=== PATIENT | female | born 1945 | race Caucasian/White ===

== ENCOUNTER → 2016-08-18 | Outpatient (CLI) | payer MEDICARE ==
--- NOTE | 2016-08-18 10:54 | MRI ---
EXAM DESCRIPTION: MRI of the cervical spine CLINICAL HISTORY: NECK PAIN COMPARISON: None. TECHNIQUE: Multiplanar MRI of the cervical spine was performed without contrast. GENERAL Cervical vertebral body alignment is unremarkable.Vertebral body heights are maintained. The craniocervical and atlantoaxial junctions are unremarkable. No aggressive osseous lesion. C2-3 Left facet degeneration noted with marrow edema and reactive soft tissue edema. No neural foraminal or spinal canal narrowing. C3-4 There is severe left neural foraminal narrowing and moderate right neural foraminal narrowing from facet and uncovertebral joint hypertrophy. A 2 mm broad-based posterior disc protrusion. No spinal canal narrowing. C4-5 Moderate bilateral neural foraminal narrowing from facet and uncovertebral joint hypertrophy. The midline diameter of the spinal canal is adequate at 11 mm. C5-6 Asymmetric to the left broad-based posterior disc osteophyte complex. Minimal cord flattening without myelomalacia noted. The midline diameter of the spinal canal is adequate at 1 cm. Moderate bilateral neural foraminal narrowing from facet and uncovertebral joint hypertrophy. C6-7 Broad-based posterior disc osteophyte complex with cord contact. The midline diameter of the spinal canal is adequate at 1 cm. Bilateral neural foramen and are likely adequate. C7-T1 No significant findings. CORD AND INTRASPINAL No cervical cord or intraspinal lesions. IMPRESSION: There is multilevel degenerative change as described above with cord contact noted at C5-C6 and C6-C7, but borderline normal spinal canal at both levels. No evidence of myelomalacia and Multilevel neural foraminal narrowing as described above there there is extensive marrow edema in reactive soft tissue edema noted surrounding the left C2-C3 facet could cause significant localized pain. Electronically signed by: Young Roca MD 08/18/2016 10:52
== END ==
LOC: MRI 08:51
PROVIDERS: ATTEND Family Medicine
DX: M54.2 Cervicalgia (principal); M53.82 Other specified dorsopathies, cervical region

== ENCOUNTER → 2016-08-25 | Outpatient (CLI) | payer MEDICARE | LOC: GMAL 12:33 | PROVIDERS: ATTEND Family Medicine | DX: D51.3 Other dietary vitamin B12 deficiency anemia (principal); E55.9 Vitamin D deficiency, unspecified ==

== ENCOUNTER → 2016-09-01 | Outpatient (CLI) | payer MEDICARE | LOC: GMAL 11:57 | PROVIDERS: ATTEND Family Medicine | DX: R53.82 Chronic fatigue, unspecified (principal) ==

== ENCOUNTER → 2016-12-19 | Outpatient (CLI) | payer MEDICARE ==
--- NOTE | 2016-12-21 10:59 | RAD ---
EXAM DESCRIPTION: Foot,Right 3 Views CLINICAL HISTORY: 71 years, Female, GANGLION CYST COMPARISON: None TECHNIQUE: AP, lateral, and oblique views of the right foot FINDINGS: Mild degenerative changes are present without destructive process or definite erosive changes. No fracture or dislocation is noted and no radiopaque foreign body evident. IMPRESSION: Essentially negative right foot with mild degenerative changes. Electronically signed by: Saleem Patel MD 12/21/2016 10:58 AM CDT
== END | disposition home or self-care (01) ==
LOC: RAD 08:01
PROVIDERS: ATTEND Orthopaedic Surgery
DX: M67.40 Ganglion, unspecified site (principal)

== ENCOUNTER 2016-12-23 05:46 | Day surgery (SDC) | payer MEDICARE ==
[2016-12-23] MEDS ORDERED: LACTATED RINGERS 1,000 ML ONE (06:10)
[2016-12-23] MEDS ORDERED: SODIUM CHL 0.9% 100ML MINI-BAG 100 ML IVPB ONE (06:10)
[2016-12-23] MEDS ORDERED: ceFAZolin SODIUM 1 GM VIAL ONE ×2 (06:11→10:50)
[2016-12-23] MEDS ORDERED: VANCOMYCIN HCL INJ 1,000 MG VIAL IVPB ONE (10:50)
[2016-12-23] MEDS ORDERED: LIDOCAINE 1% 50 ML VIAL INJ ONE (10:50)
[2016-12-23] MEDS ORDERED: PROPOFOL 200 MG/20 ML VIAL IV ONE (12:00)
[2016-12-23 12:15] VITALS: TEMP 97.7
[2016-12-23 13:45] VITALS: BP 153/79; O2SAT 99
--- NOTE | 2016-12-24 08:54 | OP ---
DATE OF PROCEDURE: 12/23/16 PREOPERATIVE DIAGNOSIS: 1. Ganglion cyst of the toe at the proximal interphalangeal joint. POSTOPERATIVE DIAGNOSIS: 1. Ganglion cyst of the toe at the proximal interphalangeal joint. PROCEDURE: 1. Excision of cyst. SURGEON: Terrell Kraft MD. ASSISTING: Tobin Christine CST, BRUNO. ANESTHESIA: General. COMPLICATIONS: None. FINDINGS: About 4 to 5 mm cyst arising from the proximal interphalangeal joint. INDICATION: Ms. Hua has a history of cystic like mass on the digit. She had no trauma related to this. It has fluctuated occasionally in size, but causes irritation dorsally. Secondary to that, she requested operative intervention. After discussing the risks, benefits and alternatives to that, she gave informed consent for that. PROCEDURE: The patient was brought to the Operating Room and placed in the supine position. General anesthesia was induced and the lower leg was prepped and draped. Following prepping and draping, a transverse incision was made directly overlying the cyst. Blunt dissection was used to isolate the cyst. The dissection was carried down all the way to the IP joint and it was noted to arise from there. The cyst was excised and the stalk was cauterized. The wound was irrigated and sterile dressings were placed. The patient was awoken from anesthesia and taken to Recovery. POSTOPERATIVE INSTRUCTIONS: She will be weight-bearing as tolerated and followup with us in approximately two days. #[id number] [facility]
== END 2016-12-23 12:30 | disposition home or self-care (01) ==
LOC: AMB 05:46
PROVIDERS: ATTEND Orthopaedic Surgery
DX: M67.471 Ganglion, right ankle and foot (principal); E03.9 Hypothyroidism, unspecified; I48.91 Unspecified atrial fibrillation; K21.9 Gastro-esophageal reflux disease without esophagitis; I10 Essential (primary) hypertension; M15.0 Primary generalized (osteo)arthritis; E78.4 Other hyperlipidemia; I70.1 Atherosclerosis of renal artery; M35.00 Sjogren syndrome, unspecified; I47.1 Supraventricular tachycardia; Z88.2 Allergy status to sulfonamides; Z88.7 Allergy status to serum and vaccine; Z79.82 Long term (current) use of aspirin; Z79.899 Other long term (current) drug therapy
CPT/HCPCS: 01470; 28092; 87070; 88304; J0690; J3370; J3490; J7050; J7120

== ENCOUNTER → 2017-02-24 | Outpatient (CLI) | payer MEDICARE | LOC: GMAL 10:22 | PROVIDERS: ATTEND Family Medicine | DX: D51.3 Other dietary vitamin B12 deficiency anemia (principal); E03.9 Hypothyroidism, unspecified; E55.9 Vitamin D deficiency, unspecified; E78.4 Other hyperlipidemia ==

== ENCOUNTER → 2017-04-08 | Outpatient (CLI) | payer MEDICARE | END | disposition home or self-care (01) | LOC: GMAL 17:29 | PROVIDERS: ATTEND Family Medicine | DX: R41.82 Altered mental status, unspecified (principal) ==

== ENCOUNTER → 2017-04-15 | Outpatient (CLI) | payer MEDICARE ==
--- NOTE | 2017-04-15 13:34 | MRI ---
EXAM DESCRIPTION: Brain w/wo Contrast CLINICAL HISTORY: 71 years Female, MEM LOSS, ALTERED MENTAL STATUS left sided headache with blurred vision. COMPARISON: None. TECHNIQUE: MRI of the brain is performed according to our usual protocol including multiplanar multi sequence technique. Post gadolinium imaging is performed following IV administration. FINDINGS: Noncontrast imaging demonstrates an intact corpus callosum and normal-appearing sella and pituitary region as well as brainstem. Normal-size ventricular system for the patient's age is present without mass effect or midline shift. Periventricular coalescent and scattered subcortical white matter changes of aging and small vessel disease is evident. Possibility of vasculitis or a demyelinating process cannot be completely excluded. Coronal gradient echo imaging demonstrates no evidence of susceptibility artifact to suggest prior hemorrhage. Postcontrast the normal meningeal and vascular structures enhance. Tumor mass or metastatic disease is not apparent. A large vascular malformation is not apparent. IMPRESSION: 1. Age-appropriate atrophic changes with mild ventriculomegaly without mass effect. 2. Extensive bilateral periventricular and subcortical white matter signal changes of aging and small vessel disease that is more extensive than typically seen and suggestive of superimposed possibility of an element of vasculitis or demyelinating process. Definite involvement of the corpus callosum is not apparent to strongly suggest demyelinating process. 3. No enhancing tumor mass or metastatic disease or large vascular malformation is seen. Electronically signed by: Saleem Patel MD 04/15/2017 1:33 PM CDT
== END ==
LOC: MRI 09:34
PROVIDERS: ATTEND Family Medicine
DX: R41.82 Altered mental status, unspecified (principal)

== ENCOUNTER → 2017-06-04 | Outpatient (CLI) | payer MEDICARE | END | disposition home or self-care (01) | LOC: GMAL 14:37 | PROVIDERS: ATTEND Family Medicine | DX: D51.3 Other dietary vitamin B12 deficiency anemia (principal); M79.1 Myalgia ==

== ENCOUNTER → 2017-11-04 | Outpatient (CLI) | payer MEDICARE | LOC: GMAL 10:45 | PROVIDERS: ATTEND Family Medicine | DX: E34.9 Endocrine disorder, unspecified (principal) ==

== ENCOUNTER → 2017-11-12 | Outpatient (CLI) | payer MEDICARE | END | disposition home or self-care (01) | LOC: GMAL 14:31 | PROVIDERS: ATTEND Family Medicine | DX: R53.82 Chronic fatigue, unspecified (principal) ==

== ENCOUNTER → 2017-11-23 | Outpatient (CLI) | payer MEDICARE | LOC: LAB.O 08:30 | PROVIDERS: ATTEND Family Medicine | DX: E06.3 Autoimmune thyroiditis (principal); E05.00 Thyrotoxicosis with diffuse goiter without thyrotoxic crisis or storm; M32.10 Systemic lupus erythematosus, organ or system involvement unspecified ==

== ENCOUNTER → 2017-12-10 | Outpatient (CLI) | payer MEDICARE ==
--- NOTE | 2017-12-14 14:39 | MAM ---
EXAM DESCRIPTION: 3D Screening BILATERAL : Digital Mammography. CLINICAL HISTORY: 72 years Female SCREENING . No complaints. Remote family history of breast cancer. Postmenopausal. Currently on HRT. COMPARISON: Baseline study at this facility. No prior reports available. TECHNIQUE: Bilateral CC and MLO projection full-field images, 3-D tomosynthesis digital mammographic technique. Also bilateral synthesized CC/ MLO full-field images. CAD not utilized. FINDINGS: The breast parenchymal density pattern is: Scattered areas of fibroglandular density. No skin thickening or nipple retraction left axillary lymph node. Bilateral solitary microcalcifications.. Focal asymmetry in the 900 clock position of the right breast, anterior third, approximately 3 cm from the nipple. Not associated with microcalcifications. No focal, stellate mass or density, focal asymmetry , and no suspicious microcalcifications left breast. IMPRESSION: BI-RADS CATEGORY: 0 - INCOMPLETE- Need additional imaging evaluation. FOLLOW-UP: Recall for additional imaging: Bilateral 3-D tomosynthesis diagnostic full field LM images and 2-D digital CC spot compression of the anterior right breast. Follow-up targeted right breast ultrasound if indicated by diagnostic images.. Written communication concerning the IMPRESSION and Follow-up, will be mailed to the patient and referring health care provider. Electronically signed by: Tobin Rose MD 12/14/2017 2:38 PM CDT
== END ==
LOC: MAMMO 10:53
PROVIDERS: ATTEND Family Medicine
DX: Z12.31 Encounter for screening mammogram for malignant neoplasm of breast (principal)

== ENCOUNTER → 2017-12-16 | Outpatient (CLI) | payer MEDICARE ==
--- NOTE | 2017-12-17 10:28 | US ---
EXAM DESCRIPTION: Breast,Right: Ultrasound CLINICAL HISTORY: 72 yearsFemaleABNORMAL MAMMO COMPARISON: Digital diagnostic 3-D tomosynthesis bilateral breasts on this visit. Bilateral 3-D tomosynthesis screening study 12/10/2017. TECHNIQUE: Transcutaneous scanning of the right breast utilizing two-dimensional and Doppler modes. Scanning performed by the boiler tender and Dr. Rose. FINDINGS: Scanning at the 800 clock position of the right breast from 3 cm to the nipple. Heterogeneous fibroglandular and fatty echotexture. No distinct solid mass or cyst. No abnormal Doppler vascularity or large calcifications. No parenchymal edema. No overlying skin abnormalities. IMPRESSION: 1. Bi-Rads Category 2: Benign. 2. Please refer to bilateral diagnostic 3-D tomosynthesis mammogram examination and report on this visit. The FINDINGS and the FOLLOW-UP plan were reviewed in person with the patient after the examination. Written communication explaining the IMPRESSION and FOLLOW-UP will be mailed to the patient and referring care provider. Electronically signed by: Tobin Rose MD 12/17/2017 10:27 AM CDT
--- NOTE | 2017-12-17 10:29 | MAM ---
EXAM DESCRIPTION: 3D Diagnostic, Bilateral: Digital Mammography CLINICAL HISTORY: 72 yearsFemaleABNORMAL MAMMOGRAM focal asymmetry lateral anterior right breast.. COMPARISON: 3-D digital screening bilateral study 12/10/2017.. Targeted right breast ultrasound following this examination. Report from prior examination also reviewed. TECHNIQUE: Bilateral LM projection full-field images, 3-D tomosynthesis digital mammographic technique. Also bilateral synthesized LM full-field images. 2-D spot magnification in the CC and MLO projections anterior right breast. CAD on 2-D images. FINDINGS: Right breast parenchymal density pattern is: Scattered areas of fibroglandular density. No skin thickening or nipple retraction focal asymmetry in the anterior lateral right breast seen on the prior study is not as distinct on the LM tomosynthesis. Scattered small microcalcifications. Ultrasound: Scanning at the 800 clock position of the right breast from 3 cm to the nipple. Heterogeneous fibroglandular and fatty echotexture. No distinct solid mass or cyst. No abnormal Doppler vascularity or large calcifications. No parenchymal edema. No overlying skin abnormalities. IMPRESSION: BI-RADS CATEGORY: 2 - BENIGN FINDINGS. FOLLOW UP: Return to routine digital bilateral screening, one year interval from December 2017. The FINDINGS and the FOLLOW-UP plan were reviewed in person with the patient after the examination. Written communication explaining the IMPRESSION and FOLLOW-UP will be mailed to the patient and referring care provider. According to the [employer], yearly mammograms are recommended starting at age 40 and continuing as long as a woman is in good health. Any breast change noted on a breast self-exam should be reported promptly to the patient's healthcare provider. Breast MRI is recommended for women with an approximately 20-25% or greater lifetime risk of breast cancer, including women with a strong family history of breast or ovarian cancer and women who have been treated for Hodgkin's disease. A negative mammographic report should not delay tissue diagnosis in patients with significant clinical history or physical findings. Extremely dense breast tissue limits the sensitivity of digital mammography. Electronically signed by: Tobin Rose MD 12/17/2017 10:27 AM CDT
== END ==
LOC: MAMMO 10:44
PROVIDERS: ATTEND Family Medicine
DX: R92.8 Other abnormal and inconclusive findings on diagnostic imaging of breast (principal)
CPT/HCPCS: 76641; 77066; G0279

== ENCOUNTER → 2018-05-05 | Outpatient (CLI) | payer MEDICARE | LOC: GMAL 10:47 | PROVIDERS: ATTEND Family Medicine | DX: M79.1 Myalgia (principal); E03.9 Hypothyroidism, unspecified; E78.4 Other hyperlipidemia ==

== ENCOUNTER → 2019-03-17 | Outpatient (CLI) | payer MEDICARE | LOC: GMAL 10:48 | PROVIDERS: ATTEND Family Medicine | DX: R23.3 Spontaneous ecchymoses (principal) ==

== ENCOUNTER → 2019-05-09 | Outpatient (CLI) | payer MEDICARE | LOC: GMAL 10:25 | PROVIDERS: ATTEND Family Medicine | DX: D51.3 Other dietary vitamin B12 deficiency anemia (principal); E06.3 Autoimmune thyroiditis; E55.9 Vitamin D deficiency, unspecified; E78.49 Other hyperlipidemia ==

== ENCOUNTER → 2019-07-21 | Outpatient (CLI) | payer MEDICARE | LOC: GMAL 10:37 | PROVIDERS: ATTEND Family Medicine | DX: E06.3 Autoimmune thyroiditis (principal); E55.9 Vitamin D deficiency, unspecified ==

== ENCOUNTER → 2019-08-01 | Outpatient (CLI) | payer MEDICARE ==
--- NOTE | 2019-08-01 10:53 | MRI ---
EXAM DESCRIPTION: Brain w/oContrast CLINICAL HISTORY: MEMORY LOSS COMPARISON: Previous MRI of the brain April 15, 2017 TECHNIQUE: Non contrast MRI of the brain is performed according to our usual protocol including multiplanar multi sequence technique. FINDINGS: Sagittal T1 images show intact corpus callosum. Normal pituitary gland with normal T1 appearance of the jennifer and medulla and upper cervical cord. Normal signal intensity within the clivus and calvarium. Axial T2 fat sat images reveal preservation of intracranial vascular flow voids. Normal gonsalves matter T2 signal intensity. Extensive white matter hyperintensities. Prominent ventricles and sulci consistent with age-related cerebral volume loss. The globes appear intact and symmetrical. No abnormal fluid signal in the paranasal sinuses, tympanic cavities or mastoid air cells. Axial flair images show innumerable foci of increased signal intensity in the subcortical and central white matter of both cerebral hemispheres. Severe chronic microvascular ischemic disease is favored over nonischemic demyelinating process. The pattern is very similar to previous study April 15, 2017. Diffusion weighted images are negative for focal intense increased signal intensity in the brain parenchyma to suggest restricted diffusion. ADC mapping is negative. Axial T1 images show normal gonslaves-white matter differentiation. No high signal intensity hemorrhagic lesion of the brain parenchyma. No subdural hematoma. Axial susceptibility weighted images are negative for focal signal loss to suggest abnormal brain parenchymal calcification or hemosiderin deposition. IMPRESSION: Multifocal T2/FLAIR hyperintensity of the cerebral white matter consistent with advanced microvascular ischemic disease. See above. Electronically signed by: Jean Claude Carter MD 08/01/2019 10:51 AM [facility]
== END ==
LOC: MRI 09:57
PROVIDERS: ATTEND Family Medicine
DX: R41.81 Age-related cognitive decline (principal); R90.82 White matter disease, unspecified

== ENCOUNTER → 2020-01-30 | Outpatient (CLI) | payer MEDICARE | LOC: GMAL 10:46 | PROVIDERS: ATTEND Family Medicine | DX: E06.3 Autoimmune thyroiditis (principal); I10 Essential (primary) hypertension; E78.49 Other hyperlipidemia ==

== ENCOUNTER → 2020-08-16 | Outpatient (CLI) | payer MEDICARE | LOC: GMAL 14:03 | PROVIDERS: ATTEND Family Medicine | DX: E03.9 Hypothyroidism, unspecified (principal); I10 Essential (primary) hypertension; E78.2 Mixed hyperlipidemia ==